=== PATIENT | male | born 1960 | race Caucasian/White ===

== ENCOUNTER 2018-09-30 19:38 | Emergency (ER) | payer OTHER ==
[2018-09-30 20:19] LABS: % BASOPHILS 1.3 % (0.0-2.0); % EOSINOPHILS 6.3 % (0.0-5.0); % LYMPHOCYTES 28.7 % (20.0-50.0); % NEUTROPHILS 54.7 % (40.0-80.0); BASOPHILE ABSOLUTE 0.1 Th/cumm (0-0.2); EOSINOPHILE ABSOLUTE 0.5 Th/cmm (0.1-0.4); HEMATOCRIT 29.6 % (41.0-60); HEMOGLOBIN 10.2 gm/dL (12-16); LYMPHOCYTE ABSOLUTE 2.1 Th/cmm (1.5-3.0); MEAN CORPUSCULAR HGB CONC 34.3 pg (28.0-36.0); MEAN PLATELET VOLUME 7.6 fl; MONOCYTE ABSOLUTE 0.7 Th/cmm (0.3-1.0); PLATELET COUNT 142 Th/cmm (150-400); RED BLOOD COUNT 2.75 Mil/cmm (4.30-5.70); RED CELL DISTRIBUTION WIDTH 14.9 % (11.5-20.0); WHITE BLOOD COUNT 7.4 Th/cmm (4.8-10.8)
[2018-09-30 20:23] LABS: MEAN CELL VOLUME 107.7 fl (80-99)
[2018-09-30 20:38] LABS: ALB/GLOB RATIO 0.9 (1.0-1.8); ALBUMIN 3.3 gm/dL (4.2-5.5); ALKALINE PHOSPHATASE 106 U/L (34-104); ANION GAP 10.8 (7.0-16.0); BILIRUBIN,TOTAL 1.8 mg/dL (0.3-1.0); BUN - UREA NITROGEN 9 mg/dL (7-25); CALCIUM SERUM 8.5 mg/dL (8.6-10.3); CARBON DIOXIDE 21.3 mEq/L (21.0-31.0); CHLORIDE 110 mEq/L (98-107); CREATININE - SERUM 0.7 mg/dL (0.7-1.3); GFR AFRICAN-AMERICAN > 60.0 ml/min (>90); GFR NON AFRICAN-AMERICAN > 60.0 ml/min; GLUCOSE 125 mg/dL (70-105); POTASSIUM SERUM 3.1 mEq/L (3.5-5.1); SGOT 66 U/L (13-39); SGPT/ALT 40 U/L (7-52); SODIUM SERUM 139 mEq/L (136-145)
[2018-09-30] MEDS ORDERED: Potassium Chloride 20 mEq ER Tab PO ONE (23:12)
--- NOTE | 2018-09-30 23:14 | ED Physician Chart ---
ED Chief Complaint/HPI - Patient Information Date Seen:: 09/30/18 Time Seen:: 23:13 Chief Complaint:: Generalized body pain and "I just drank alcohol" History of Present Illness:: 58 yo male with history of bipolar disorder, was brought by ambulance to ER due to generalized body pain, chest pain, abdominal pain. Patient said "I just drank alcohol about 45 minutes ago." Patient stated that he noticed blood in stool yesterday but not today. Allergies:: Allergies Allergy/AdvReac Type Severity Reaction Status Date / Time Penicillins Allergy Verified 09/30/18 19:44 Vitals:: Vital Signs - 8 hr 09/30/18 19:40 Temp 98.1 F HR 97 RR 18 BP 124/62 O2 Sat % 98 ED Review of Systems - Review of Systems General/Constitutional: No fever, No chills Skin: No bruising Head: No headache Eyes: No pain ENT: No nasal drainage Cardio Vascular: Chest pain Pulmonary: No SOB GI: No nausea, No vomiting, Pain Musculoskeletal: Bone or joint pain, Muscle pain Psychiatric: No prior psych history Neurological: No focal symptoms ED Past Medical History - Past Medical History Past Medical History: HTN, DM Social History: Smoker, Alcohol, No Drug Use Surgical History: other (neck surgery) Psychiatricy History: Bipolar, Other (ADHD) Family Medical History - Family Member Mother History Unknown: Yes ED Physical Exam - Physical Examination General/Constitutional: Awake, Alert Head: Atraumatic Eyes: PERRL Skin: No ecchymosis ENMT: Nasal exam nl Neck: No nuchal rigidity Respiratory: Clear to Auscultation Cardio Vascular: RRR, No murmur, gallop, rubs, NL S1 S2 GI: Nondistended Extremities: normal strength in all extremities Neuro/Psych: Alert/oriented, No focal deficits ED Labs/Radiology/EKG Results - Lab Results Results: Laboratory Tests 09/30/18 09/30/18 09/30/18 20:15 20:15 20:15 WBC 7.4 RBC 2.75 L Hgb 10.2 L Hct 29.6 L MCV 107.7 H MCH 37.0 H MCHC Differential 34.3 RDW 14.9 Plt Count 142 L MPV 7.6 Neutrophils % 54.7 Lymphocytes % 28.7 Monocytes % 9.0 Eosinophils % 6.3 H Basophils % 1.3 Sodium 139 Potassium 3.1 L Chloride 110 H Carbon Dioxide 21.3 Anion Gap 10.8 BUN 9 Creatinine 0.7 Est GFR ( Amer) > 60.0 Est GFR (Non-Af Amer) > 60.0 BUN/Creatinine Ratio 12.9 Glucose 125 H Calcium 8.5 L Total Bilirubin 1.8 H AST 66 H ALT 40 Alkaline Phosphatase 106 H Troponin I B-Natriuretic Peptide 22.2 Total Protein 7.0 Albumin 3.3 L Globulin 3.7 Albumin/Globulin Ratio 0.9 L Ethyl Alcohol 279 H 09/30/18 20:15 WBC RBC Hgb Hct MCV MCH MCHC Differential RDW Plt Count MPV Neutrophils % Lymphocytes % Monocytes % Eosinophils % Basophils % Sodium Potassium Chloride Carbon Dioxide Anion Gap BUN Creatinine Est GFR ( Amer) Est GFR (Non-Af Amer) BUN/Creatinine Ratio Glucose Calcium Total Bilirubin AST ALT Alkaline Phosphatase Troponin I 0.05 B-Natriuretic Peptide Total Protein Albumin Globulin Albumin/Globulin Ratio Ethyl Alcohol - Radiology Results Results: CXR: no focal consolidation - EKG Interpretations EKG Time:: 21:06 Rate & Rhythm: 91 bpm, sinus rhythm [place]: Probable left atrial enlargement Intervals: Borderline prolonged QT interval Comments:: Borderline EKG ED Assessment - Assessment General Assessment: Anemia, macrocytic, hyperchromic Hypokalemia Alcohol abuse Assessment/Comments:: CBC, CMP, Trop, BNP, ETOH level CXR, EKG KCL 40mEq po D/c home F/u PCP or return to ER if symptoms worsen ED Septic Shock - . Is Septic Shock (SBP<90, OR Lactate>4 mmol\\L) present?: No - <6hrs of presentation: Vital Signs: Vital Signs - 8 hr 09/30/18 19:40 Temp 98.1 F HR 97 RR 18 BP 124/62 O2 Sat % 98 ED Reassessment (Disposition) - Reassessment Reassessment Condition:: Improved - Patient Disposition Discharge/Transfer:: Home
[2018-10-01] MEDS ORDERED: Potassium Chloride 20 mEq ER Tab PO ONE (00:08)
--- NOTE | 2018-10-01 08:47 | Diagnostic Imaging Report ---
CHEST X-RAY: AP view INDICATION: Shortness of breath COMPARISON: None FINDINGS: There is no focal consolidation or pleural effusions The heart is normal in size. Postsurgical changes of the lower cervical spine is noted. IMPRESSION: No focal consolidation identified. Postsurgical changes of the lower cervical spine.
== END 2018-10-01 06:15 | disposition home or self-care (01) ==
LOC: ER 19:38
DX: D50.9 Iron deficiency anemia, unspecified (principal); E87.6 Hypokalemia; F10.10 Alcohol abuse, uncomplicated; I10 Essential (primary) hypertension; E11.9 Type 2 diabetes mellitus without complications; F31.9 Bipolar disorder, unspecified; F17.200 Nicotine dependence, unspecified, uncomplicated; Y90.8 Blood alcohol level of 240 mg/100 ml or more; Z98.890 Other specified postprocedural states; Z88.0 Allergy status to penicillin
CPT/HCPCS: 36415-UA; 71045-TC; 80053-TC; 80320-TC; 83880-TC; 84484-TC; 85025-TC; 93005; Z7502